=== PATIENT | female | born 1990 | race African-American/Black ===

== ENCOUNTER 2020-08-22 12:12 | Emergency (ER) | payer MEDICAID, SELFPAY ==
[~2020-08-22] VITALS: Ht 170.2 cm; Wt 118.4 kg
[2020-08-22 14:11] VITALS: BP_SYST 178
--- NOTE | 2020-08-22 14:27 | NUR ---
TRIAGED IN TENT, DR. OVIEDO EXAMINING PT
[2020-08-22] MEDS ORDERED: cloNIDine HCL 0.1 MG TABLET PO ONE (14:45)
--- NOTE | 2020-08-22 15:06 | NUR ---
PLACED IN FAST TRACK 2
--- NOTE | 2020-08-22 15:24 | NUR ---
Patient brought in Ambulatory from home complaining frontal headache starting at 1100 today, throbbing with dizziness. During triage, BP was elevated with sbp in the 170s. Pain 5/10. Patient reports being 1 week . No other complaints/injuries per patient or as noted. Will continue to monitor.
--- NOTE | 2020-08-22 15:34 | NUR ---
medicated per md orders. will continue to monitor.
--- NOTE | 2020-08-22 15:57 | NUR ---
PATIENT COMPLAINING OF WORSENING HEADACHE. BP ELEVATED IN SBP 170s. Pain 03/07. MD notified new orders received.
[2020-08-22] MEDS ORDERED: KETOROLAC TROMETHAMINE 60 MG/2 ML VIAL IM ONE ×2 (16:00→16:05)
[2020-08-22] MEDS ORDERED: LABE200T28 PO (16:52)
--- NOTE | 2020-08-22 16:52 | NUR ---
MD in Fast Track speaking to patient regarding Elevated BP. MD to order IM medication and will re evaluate.
[2020-08-22] MEDS ORDERED: hydrALAZINE HCL 20 MG/ML VIAL IM ONE (17:00)
[2020-08-22 18:07] VITALS: BP_SYST 164
== END 2020-08-22 16:52 | disposition home or self-care (01) ==
LOC: SED 12:12
DX: R51.9 Headache, unspecified (principal); I10 Essential (primary) hypertension
CPT/HCPCS: 70450; 76376; 96372; 99284; J0360; J1885